=== PATIENT | female | born 1960 | race African-American/Black ===

== ENCOUNTER 2016-10-10 18:55 | Emergency (ER) | payer SELFPAY ==
[~2016-10-10] VITALS: Ht 167.6 cm; Wt 123.0 kg
[~2016-10-10 18:55] MED LIST: FLUO10TA3 PO; OLAN10TA3 PO; ZOLP10TA2 PO
[2016-10-10 18:59] VITALS: BP 138/69
== END 2016-10-11 00:44 | disposition left against medical advice (07) ==
LOC: ER 18:55
DX: M79.641 Pain in right hand (principal); Z53.21 Procedure and treatment not carried out due to patient leaving prior to being seen by health care provider

== ENCOUNTER 2016-10-15 04:13 | Emergency (ER) | payer MEDICARE ==
[~2016-10-15] VITALS: Ht 167.6 cm; Wt 94.0 kg
[2016-10-15] MEDS ORDERED: HYDROCODONE/ACETAMINOPHEN 5/325MG TABLET PO ONE (09:45)
[2016-10-15 10:30] VITALS: BP 138/79
== END 2016-10-15 11:04 | disposition home or self-care (01) ==
LOC: ER 04:13
DX: S52.501A Unspecified fracture of the lower end of right radius, initial encounter for closed fracture (principal); S52.611A Displaced fracture of right ulna styloid process, initial encounter for closed fracture; M25.561 Pain in right knee; Z88.8 Allergy status to other drugs, medicaments and biological substances; W01.0XXA Fall on same level from slipping, tripping and stumbling without subsequent striking against object, initial encounter; Y93.89 Activity, other specified; Y92.89 Other specified places as the place of occurrence of the external cause; Y99.8 Other external cause status
CPT/HCPCS: 29125; 73090; 73110; 73562; 99284

== ENCOUNTER 2018-02-01 23:11 | Inpatient (IN) | payer OTHER ==
[~2018-02-01] VITALS: Ht 162.6 cm; Wt 88.9 kg
[2018-02-02] MEDS ORDERED: MORPHINE SULFATE 4 MG/ML CPJ (NOT FOR IM USE) IV STA (00:32)
[2018-02-02] MEDS ORDERED: SODIUM CHLORIDE 0.9% 1,000 ML IV ONE (00:32)
[2018-02-02] MEDS ORDERED: ONDANSETRON HCL 4MG/2ML INJ IV STA (00:32)
[2018-02-02 01:34] LABS: BASOPHILS % 0.4 % (0.0-2.0); CHLORIDE 105 mEq/L (98-107); EOSINOPHILS % 0.4 % (0.0-5.0); HEMATOCRIT. 36.4 % (36.0-48.0); LYMPHOCYTES % 25.4 % (20.0-50.0); MEAN CORPUSCULAR HEMOGLOBIN 32.8 pg (28.0-32.0); MEAN CORPUSCULAR VOLUME 99.3 fL (81.0-99.0); MEAN PLATELET VOLUME 7.7 fl (7.4-10.4); MONOCYTES % 5.8 % (2.0-8.0); PLATELET 238 x1000/uL (130-400); RED BLOOD CELL COUNT 3.66 mill/uL (4.2-5.4); RED CELL DISTRIBUTION WIDTH 14.2 % (11.6-14.6)
[2018-02-02 01:39] LABS: INR 1.1; PARTIAL THROMBOPLASTIN TIME 23.5 sec (23.4-31.0); PROTHROMBIN TIME 10.7 sec (9.1-11.1)
[2018-02-02 03:30] LABS: CLARITY URINE CLOUDY (CLEAR); COLOR URINE YELLOW (YELLOW); KETONES URINE NEGATIVE (NEGATIVE); LEUKOCYTE ESTERASE URINE TRACE (NEGATIVE); NITRITE URINE NEGATIVE (NEGATIVE); OCCULT BLOOD URINE NEGATIVE (NEGATIVE); PH URINE 5.5 (4.5-8.0); PROTEIN URINE NEGATIVE (NEGATIVE); SPECIFIC GRAVITY URINE 1.007 (1.005-1.030); UROBILINOGEN URINE 0.2 E.U./dL (0.2-1.0)
[2018-02-02] MEDS ORDERED: CEFTRIAXONE 1 G PREMIX 50 ML IV ONE (03:45)
[2018-02-02 08:00] VITALS: BP 138/63
[2018-02-02 09:26] VITALS: BP 135/70
[2018-02-02] MEDS ORDERED: ACETAMINOPHEN 650MG SUPP PR PRN (10:15)
[2018-02-02] MEDS ORDERED: ONDANSETRON HCL 4MG/2ML INJ IV PRN (10:15)
[2018-02-02] MEDS ORDERED: DIPHENHYDRAMINE 50MG/ML VIAL IV PRN (10:15)
[2018-02-02] MEDS ORDERED: IPRATROPIUM/ALBUTEROL 0.5-3(2.5)MG/3ML NEB INH PRN (10:15)
[2018-02-02] MEDS: PANTOPRAZOLE SODIUM 40 MG/VIAL IV SCH (10:53)
[2018-02-02] MEDS: DEXT 5%/0.45% NACL 1000ML 1,000 ML IV SCH (10:53)
[2018-02-02] MEDS: MORPHINE SULFATE 4 MG/ML CPJ (NOT FOR IM USE) IV PRN ×2 (11:11→18:03)
[2018-02-02] MEDS: LEVOFLOXACIN 500MG PREMIX 100 ML IV SCH (11:43)
[2018-02-02 12:00] VITALS: BP 118/74
[2018-02-02 13:46] LABS: CHLORIDE 107 mEq/L (98-107)
[2018-02-02] MEDS: METRONIDAZOLE 500 MG PREMIX 100 ML IV SCH ×2 (14:08→22:39)
[2018-02-02 16:00] VITALS: BP 110/61
[2018-02-02] MEDS ORDERED: HYDRALAZINE 20MG/ML VIAL IV PRN (16:15)
[2018-02-02] MEDS ORDERED: HYDRALAZINE 10 MG in SODIUM CHLORIDE 0.9% 49.5 ML IV PRN (16:30)
[2018-02-02 17:06] LABS: *COCAINE SCREEN URINE NEGATIVE (NEGATIVE); METHADONE URINE SCREEN NEGATIVE (NEGATIVE); OPIATES URINE SCREEN PRESUMTIVE POSITIVE (NEGATIVE)
[2018-02-02 17:07] LABS: *AMPHETAMINES SCREEN URINE NEGATIVE (NEGATIVE); *BARBITURATES SCREEN URINE NEGATIVE (NEGATIVE); *BENZODIAZEPINES SCREEN URINE NEGATIVE (NEGATIVE); CANNABINOID URINE SCREEN NEGATIVE (NEGATIVE); PHENCYCLIDINE URINE SCREEN NEGATIVE (NEGATIVE)
[2018-02-02] MEDS: [UNRECOGNIZED DRUG - REMARK] IV SCH ×4 (18:03)
[2018-02-02 20:00] VITALS: BP 119/64
[2018-02-03] VITALS: BP 117/58
[2018-02-03 04:00] VITALS: BP 115/67
[2018-02-03] MEDS: METRONIDAZOLE 500 MG PREMIX 100 ML IV SCH ×3 (05:40→22:18)
[2018-02-03 07:08] LABS: BASOPHILS % 0.5 % (0.0-2.0); EOSINOPHILS % 2.2 % (0.0-5.0); HEMATOCRIT. 35.6 % (36.0-48.0); HEMOGLOBIN. 11.6 g/dL (12.0-16.0); LYMPHOCYTES % 33.1 % (20.0-50.0); MEAN CORPUSCULAR HEMOGLOBIN 32.9 pg (28.0-32.0); MEAN CORPUSCULAR VOLUME 100.5 fL (81.0-99.0); MEAN PLATELET VOLUME 7.9 fl (7.4-10.4); MONOCYTES % 5.2 % (2.0-8.0); PLATELET 224 x1000/uL (130-400); RED BLOOD CELL COUNT 3.54 mill/uL (4.2-5.4); RED CELL DISTRIBUTION WIDTH 14.3 % (11.6-14.6)
[2018-02-03 07:19] LABS: AMMONIA 17 uMol/L (<32)
[2018-02-03 07:25] LABS: CHLORIDE 106 mEq/L (98-107)
[2018-02-03 07:45] LABS: HEPATITIS B SURFACE ANTIGEN NEGATIVE
[2018-02-03 07:55] LABS: HDL CHOLESTEROL 109 mg/dL (40-59); LDL CHOLESTEROL 59 mg/dL (5-100); T4 FREE 0.74 ng/dL (0.76-1.46); TOTAL IRON BINDING CAPACITY 172 ug/dL (250-450)
[2018-02-03 08:00] VITALS: BP 121/74
[2018-02-03 08:13] LABS: HEPATITIS B CORE AB IGM NEGATIVE
[2018-02-03 08:15] LABS: HEPATITIS A AB IGM NEGATIVE (NEGATIVE)
[2018-02-03] MEDS: PANTOPRAZOLE SODIUM 40 MG/VIAL IV SCH (08:24)
[2018-02-03] MEDS: DEXT 5%/0.45% NACL 1000ML 1,000 ML IV SCH ×2 (10:51→14:21)
[2018-02-03] MEDS: LEVOFLOXACIN 500MG PREMIX 100 ML IV SCH (11:43)
[2018-02-03 12:00] VITALS: BP 120/75
[2018-02-03 16:00] VITALS: BP 114/66
[2018-02-03] MEDS ORDERED: TEMAZEPAM 15MG CAPSULE PO PRN (17:15)
[2018-02-03] MEDS ORDERED: ACETAMINOPHEN 325MG TABLET PO PRN (17:30)
[2018-02-03] MEDS: [UNRECOGNIZED DRUG - REMARK] IV SCH ×4 (17:52)
[2018-02-03 20:00] VITALS: BP 109/51
[2018-02-03] MEDS: TEMAZEPAM 15MG CAPSULE PO SCH (20:58)
[2018-02-04] VITALS: BP 114/54
[2018-02-04] MEDS: DEXT 5%/0.45% NACL 1000ML 1,000 ML IV SCH (02:15)
[2018-02-04 04:00] VITALS: BP 119/69
[2018-02-04] MEDS: METRONIDAZOLE 500 MG PREMIX 100 ML IV SCH (05:52)
[2018-02-04 08:00] VITALS: BP 111/51
[2018-02-04] MEDS: PANTOPRAZOLE SODIUM 40 MG/VIAL IV SCH (09:04)
[2018-02-04] MEDS ORDERED: MEROPENEM XX SCH (09:45)
[2018-02-04 10:20] LABS: HEMATOCRIT 31.7 % (36.0-48.0); HEMOGLOBIN 10.7 g/dL (12.0-16.0); MEAN CORPUSCULAR HEMOGLOBIN 33.9 pg (28.0-32.0); MEAN CORPUSCULAR VOLUME 100.5 fL (81.0-99.0); PLATELET 210 x1000/uL (130-400); RED BLOOD CELL COUNT 3.16 mill/uL (4.2-5.4); RED CELL DISTRIBUTION WIDTH 14.2 % (11.6-14.6)
[2018-02-04 10:39] LABS: CHLORIDE 106 mEq/L (98-107)
[2018-02-04 12:00] VITALS: BP 132/81
[2018-02-04] MEDS ORDERED: POTASSIUM CHLORIDE 20MEQ TABLET SR PO SCH (12:15)
[2018-02-04] MEDS: ENOXAPARIN 30MG/0.3ML SYR SUBCUT SCH ×2 (12:38→22:53)
[2018-02-04] MEDS: MEROPENEM 1,000 MG in SODIUM CHLORIDE 0.9% 100 ML IV SCH ×2 (12:39→18:26)
[2018-02-04] MEDS: [UNRECOGNIZED DRUG - REMARK] IV SCH ×4 (19:04)
[2018-02-04 20:00] VITALS: BP 110/50
[2018-02-04 20:29] LABS: HEMATOCRIT. 30.4 % (36.0-48.0); HEMOGLOBIN. 10.2 g/dL (12.0-16.0); MEAN CORPUSCULAR HEMOGLOBIN 34.1 pg (28.0-32.0); MEAN CORPUSCULAR VOLUME 101.4 fL (81.0-99.0); PLATELET 205 x1000/uL (130-400); RED CELL DISTRIBUTION WIDTH 14.1 % (11.6-14.6)
[2018-02-04] MEDS: TEMAZEPAM 15MG CAPSULE PO SCH (21:12)
[2018-02-04 22:58] LABS: PLATELET ESTIMATE NORMAL
[2018-02-05] VITALS: BP 102/43
[2018-02-05] MEDS: MEROPENEM 1,000 MG in SODIUM CHLORIDE 0.9% 100 ML IV SCH ×3 (01:52→18:25)
[2018-02-05 04:00] VITALS: BP 101/44
[2018-02-05 08:00] VITALS: BP 98/49
[2018-02-05 08:03] LABS: CHLORIDE 108 mEq/L (98-107)
[2018-02-05] MEDS: PANTOPRAZOLE SODIUM 40 MG/VIAL IV SCH (08:31)
[2018-02-05] MEDS: ENOXAPARIN 30MG/0.3ML SYR SUBCUT SCH ×2 (08:31→22:01)
[2018-02-05] MEDS: DEXT 5%/0.45% NACL 1000ML 1,000 ML IV SCH (08:31)
[2018-02-05 12:00] VITALS: BP 104/44
[2018-02-05] MEDS ORDERED: POTASSIUM CHLORIDE 20MEQ TABLET SR PO NR (13:30)
[2018-02-05 15:34] LABS: AMYLASE 96 IU/L (25-115)
[2018-02-05 16:00] VITALS: BP 120/54
[2018-02-05] MEDS: [UNRECOGNIZED DRUG - REMARK] IV SCH ×4 (19:01)
[2018-02-05 20:00] VITALS: BP 119/64
[2018-02-05] MEDS ORDERED: TEMAZEPAM 15MG CAPSULE PO SCH (21:00)
[2018-02-06] VITALS: BP 126/72
[2018-02-06] MEDS: MEROPENEM 1,000 MG in SODIUM CHLORIDE 0.9% 100 ML IV SCH ×2 (03:51→10:32)
[2018-02-06 04:00] VITALS: BP 120/67
[2018-02-06 08:00] VITALS: BP 126/53
[2018-02-06] MEDS: ENOXAPARIN 30MG/0.3ML SYR SUBCUT SCH (08:13)
[2018-02-06] MEDS: PANTOPRAZOLE SODIUM 40 MG/VIAL IV SCH (08:14)
[2018-02-06 12:00] VITALS: BP 100/61
[2018-02-06] MEDS: DEXT 5%/0.45% NACL 1000ML 1,000 ML IV SCH (14:04)
[2018-02-06] MEDS ORDERED: POTASSIUM CHLORIDE 20MEQ TABLET SR PO NR (14:45)
[2018-02-06 16:00] VITALS: BP 112/64
[2018-02-06 16:11] VITALS: BP 137/66
== END 2018-02-06 16:25 | disposition home or self-care (01) | DRG 439 ==
LOC: ER 23:11 → 6EST 02-02 03:34 → EDBEDREQ 02-02 03:47 → EDBEDREQTM 02-02 03:47 → ENRESERV 02-02 07:09
PROVIDERS: ADMIT Internal Medicine; ATTEND Internal Medicine
DX: K85.20 Alcohol induced acute pancreatitis without necrosis or infection (principal); N39.0 Urinary tract infection, site not specified; K90.0 Celiac disease; E66.9 Obesity, unspecified; M19.90 Unspecified osteoarthritis, unspecified site; F10.10 Alcohol abuse, uncomplicated; D64.9 Anemia, unspecified; E87.6 Hypokalemia; Z98.84 Bariatric surgery status; Z68.33 Body mass index [BMI] 33.0-33.9, adult; Z88.8 Allergy status to other drugs, medicaments and biological substances; Z79.899 Other long term (current) drug therapy
CPT/HCPCS: 36415; 71045; 74176; 80048; 80061; 80305; 82140; 82150; 83540; 83550; 84425; 84439; 84443; 85007; 85027; 86705; 86709; 86803; 87340; 93005; 96365; 96366; 96375; 99285; C1893; C9113; J0696; J1650; J1956; J2185; J2270; J2405; J3411; J3490; J7030; J7040; J7050; J7070

== ENCOUNTER 2018-07-29 23:19 | Emergency (ER) | payer OTHER ==
[~2018-07-29] VITALS: Ht 162.6 cm; Wt 92.5 kg
[2018-07-30 01:05] VITALS: BP 102/70
== END 2018-07-30 01:06 | disposition home or self-care (01) ==
LOC: ER 23:19
DX: H66.91 Otitis media, unspecified, right ear (principal); Z98.84 Bariatric surgery status; Z87.19 Personal history of other diseases of the digestive system; Z88.8 Allergy status to other drugs, medicaments and biological substances; Z91.018 Allergy to other foods; W01.0XXA Fall on same level from slipping, tripping and stumbling without subsequent striking against object, initial encounter; Y93.89 Activity, other specified; Y92.511 Restaurant or cafe as the place of occurrence of the external cause
CPT/HCPCS: 99283

== ENCOUNTER 2022-12-31 19:04 | Emergency (ER) | payer BC, MEDICAID ==
[~2022-12-31] VITALS: Ht 165.1 cm; Wt 89.0 kg
[~2022-12-31 19:04] MED LIST changes: +ALBU18HF2 IH; +AMLO5TAB88 PO; +DOCU-150 PO; -FLUO10TA3 PO; +FLUO20TA29 PO; +HYDR50CA5 PO; +IBUP-2029 MT; +LEVO50TA8 PO; -OLAN10TA3 PO; +OLAN20TA34 PO; +P20 MT; +POTA10CA83 PO; +SERT25TA74 PO
[2022-12-31 19:14] VITALS: O2SAT 99
[2022-12-31] MEDS ORDERED: METHOCARBAMOL 500MG TABLET PO ONE (19:45)
[2022-12-31] MEDS ORDERED: ACETAMINOPHEN 325MG TABLET PO ONE (19:45)
[2022-12-31 19:50] VITALS: BP 110/57; PULSE 82; RESP 23; TEMP 97.9
[2022-12-31] MEDS ORDERED: METH-653 MT (21:01)
[2022-12-31] MEDS ORDERED: TOPUD MT (21:01)
== END 2022-12-31 22:10 | disposition home or self-care (01) ==
LOC: ER 21:01
DX: M25.561 Pain in right knee (principal); M79.605 Pain in left leg; F10.229 Alcohol dependence with intoxication, unspecified; J45.909 Unspecified asthma, uncomplicated; I10 Essential (primary) hypertension; Z98.890 Other specified postprocedural states; Z79.899 Other long term (current) drug therapy; W18.39XA Other fall on same level, initial encounter; Y93.89 Activity, other specified; Y92.89 Other specified places as the place of occurrence of the external cause; Y99.8 Other external cause status
CPT/HCPCS: 99284; 73560; 73590; 73610; L1830